=== PATIENT | male | born 1950 | race Caucasian/White ===

== ENCOUNTER 2024-12-01 15:13 | Emergency (ER) | payer MEDICARE ==
[~2024-12-01] VITALS: Ht 182.8 cm; Wt 103.0 kg
[~2024-12-01 15:13] MED LIST: ASPIRIN81 M1 PO; BACTROBAN OINT22 GM PO; HYDROCHLOROTH12.5 M1 PO; LIPITOR20 MG PO
[2024-12-01] MEDS ORDERED: SODIUM CHLORIDE 0.9% 1,000 ML IV ONE (15:40)
[2024-12-01] MEDS ORDERED: Ondansetron Hydrochloride 4 MG/2 ML VIAL IV ONE (15:40)
[2024-12-01 16:51] LABS: BASO # 0.0 10*3/uL (0.0-0.1); BASO % 0.1 % (0.0-1.0); EOS # 0.0 10*3/uL (0.0-0.4); EOS % 0.0 % (1.0-4.0); MEAN CELL VOLUME 90.5 fl (80.0-94.0); MEAN CORPUSCULAR HGB 29.8 pg (27.0-31.0); MEAN PLATELET VOLUME 8.9 fl (9.6-12.3); MONO # 0.6 10*3/uL (0.1-1.0); MONO % 6.1 % (3.0-9.0); NEUT # 8.5 10*3/uL (2.3-7.9); NEUT % 82.2 % (47.0-73.0); NUCLEATED RED BLOOD CELL 0.0 % (0.0-0.0); NUCLEATED RED BLOOD CELL 0.0 10*3/uL (0.0-0.0); PLATELET COUNT AUTOMATED 239 10*3/uL (130-400); RED CELL DISTRI WIDTH 14.6 % (0-14.5)
[2024-12-01] MEDS ORDERED: ceFAZolin sodium 2 GM in SYRINGE INFUSION 20 ML IV ONE (17:10)
[2024-12-01 17:11] LABS: BUN 26 mg/dl (9-23)
[2024-12-01] MEDS ORDERED: ceFAZolin sodium/sodium chlor 10 ML IV SCH (17:30)
[2024-12-01] MEDS ORDERED: ceFAZolin sodium 1 GM in SYRINGE INFUSION 10 ML IV ONE (17:40)
[2024-12-01] MEDS ORDERED: ceFAZolin sodium/sodium chlor 10 ML IV ONE (17:45)
[2024-12-01] MEDS ORDERED: Tdap Vaccine 0.5 ML SYR (Adult Vaccine) IM ONE (19:10)
== END 2024-12-01 21:35 | disposition short-term general hospital (02) ==
LOC: ED 15:13
PROVIDERS: Nurse Practitioner Family
DX: S72.402B Unspecified fracture of lower end of left femur, initial encounter for open fracture type I or II (principal); I10 Essential (primary) hypertension; I25.10 Atherosclerotic heart disease of native coronary artery without angina pectoris; E78.5 Hyperlipidemia, unspecified; Z98.61 Coronary angioplasty status; Z79.82 Long term (current) use of aspirin; Z79.899 Other long term (current) drug therapy; W01.0XXA Fall on same level from slipping, tripping and stumbling without subsequent striking against object, initial encounter; Y93.89 Activity, other specified; Y92.812 Truck as the place of occurrence of the external cause; Y99.8 Other external cause status